=== PATIENT | female | born 1935 | race Caucasian/White ===

== ENCOUNTER 2017-10-04 12:17 | Inpatient (IN) | payer MEDICARE, OTHER ==
--- NOTE | 2017-10-04 12:36 | ED Physician Chart ---
ED Chief Complaint/HPI - Patient Information Date Seen:: 10/04/17 Time Seen:: 12:30 Chief Complaint:: Weakness History of Present Illness:: 82 yo female was brought by BLS to ER due to weakness. About 2 hours ago, patient was able to walk to and sit on a commode. Afterwards, she could not stand from sitting for 4 hours. Family called 911 and the patient was brought to ER. She was recently hospitalized for pneumonia. ED Review of Systems - Review of Systems General/Constitutional: No fever Skin: Skin lesions Head: No headache Eyes: No pain ENT: No nasal drainage Neck: No neck pain Cardio Vascular: No chest pain, edema Pulmonary: SOB GI: No nausea, No vomiting G/U: Frequency Musculoskeletal: No bone or joint pain ED Past Medical History - Past Medical History Past Medical History: HTN, DM, CAD, CHF, Other (pneumonia, anemia of chronic kidney disease, sleep apnea, pulmonary hypertension, atrial fibrillation, obesity) Social History: Non Smoker, No Alcohol, No Drug Use Surgical History: CABG (3V), Hysterectomy Family Medical History - Family Member Mother History Unknown: Yes ED Physical Exam - Physical Examination General/Constitutional: Awake, Alert Head: Atraumatic Eyes: PERRL Other Skin comments:: ecchymosis on BUE ENMT: Nasal exam nl Neck: No nuchal rigidity Respiratory: No Wheeze/Rhonchi/Rales Cardio Vascular: RRR, No murmur, gallop, rubs, NL S1 S2 Other GI comments:: epigastric midline incisional hernia, umbilical hernia Other Extremities comments:: Bilateral lower extremities edema ED Labs/Radiology/EKG Results - Lab Results Results: Laboratory Last Values WBC 16.0 Th/cmm (4.8-10.8) H 10/04/17 12:52 RBC 3.03 Mil/cmm (3.80-5.20) L 10/04/17 12:52 Hgb 9.6 gm/dL (12-16) L 10/04/17 12:52 Hct 27.9 % (41.0-60) L 10/04/17 12:52 MCV 92.0 fl (81-100) 10/04/17 12:52 MCH 31.6 pg (27.0-31.0) H 10/04/17 12:52 MCHC Differential 34.4 pg (28.0-36.0) 10/04/17 12:52 RDW 17.8 % (11.5-20.0) 10/04/17 12:52 Plt Count 343 Th/cmm (150-400) 10/04/17 12:52 MPV 6.3 fl 10/04/17 12:52 Band Neutrophils % 7 % (0-10) 10/04/17 12:52 Neutrophils (Manual) 81 % (40-80) H 10/04/17 12:52 Lymphocytes 7 % (20-50) L 10/04/17 12:52 Monocytes 4 % (2-10) 10/04/17 12:52 Eosinophils 1 % (0-5) 10/04/17 12:52 PT 11.0 SECONDS (9.5-11.5) 10/04/17 12:52 INR 1.06 (0.5-1.4) 10/04/17 12:52 PTT (Actin FS) 21.9 SECONDS (26.0-38.0) L 10/04/17 12:52 Sodium 121 mEq/L (136-145) L 10/04/17 12:52 Potassium 6.8 mEq/L (3.5-5.1) H* 10/04/17 12:52 Chloride 82 mEq/L (98-107) L 10/04/17 12:52 Carbon Dioxide 32.5 mEq/L (21.0-31.0) H 10/04/17 12:52 Anion Gap 13.3 (7.0-16.0) 10/04/17 12:52 BUN 144 mg/dL (7-25) H* 10/04/17 12:52 Creatinine 4.3 mg/dL (0.6-1.2) H* 10/04/17 12:52 Est GFR ( Amer) TNP 10/04/17 12:52 Est GFR (Non-Af Amer) TNP 10/04/17 12:52 BUN/Creatinine Ratio 33.5 10/04/17 12:52 Glucose 306 mg/dL (70-105) H 10/04/17 12:52 POC Glucose 171 MG/DL (70 - 105) H 10/04/17 17:59 Whole Bld Lactic Acid 1.50 mmol/L (0.60-1.99) 10/04/17 12:52 Calcium 9.6 mg/dL (8.6-10.3) 10/04/17 12:52 Total Bilirubin 0.5 mg/dL (0.3-1.0) 10/04/17 12:52 AST 11 U/L (13-39) L 10/04/17 12:52 ALT 17 U/L (7-52) 10/04/17 12:52 Alkaline Phosphatase 97 U/L (34-104) 10/04/17 12:52 Troponin I 0.03 ng/mL (0.01-0.05) 10/04/17 12:52 B-Natriuretic Peptide 1720.0 pg/mL (5.0-100.0) H 10/04/17 12:44 Total Protein 6.7 gm/dL (6.0-8.3) 10/04/17 12:52 Albumin 3.7 gm/dL (3.7-5.3) 10/04/17 12:52 Globulin 3.0 gm/dL 10/04/17 12:52 Albumin/Globulin Ratio 1.2 (1.0-1.8) 10/04/17 12:52 TSH 3.72 uIU/ml (0.34-5.60) 10/04/17 12:52 Urine Source RANDOM 10/04/17 15:00 Urine Color YELLOW 10/04/17 15:00 Urine Clarity CLOUDY (CLEAR) H 10/04/17 15:00 Urine pH 7.5 (4.6 - 8.0) 10/04/17 15:00 Ur Specific Wilder 1.015 (1.005-1.030) 10/04/17 15:00 Urine Protein 30 mg/dL (NEGATIVE) H 10/04/17 15:00 Urine Glucose (UA) NEGATIVE mg/dL (NEGATIVE) 10/04/17 15:00 Urine Ketones NEGATIVE mg/dL (NEGATIVE) 10/04/17 15:00 Urine Blood SMALL (NEGATIVE) H 10/04/17 15:00 Urine Nitrate NEGATIVE (NEGATIVE) 10/04/17 15:00 Urine Bilirubin NEGATIVE (NEGATIVE) 10/04/17 15:00 Urine Urobilinogen 0.2 E.U./dL (0.2 - 1.0) 10/04/17 15:00 Ur Leukocyte Esterase LARGE (NEGATIVE) H 10/04/17 15:00 Urine RBC 5-10 /hpf (0-5) H 10/04/17 15:00 Urine WBC >100 /hpf (0-5) H 10/04/17 15:00 Ur Epithelial Cells NONE SEEN /lpf (FEW) 10/04/17 15:00 Urine Bacteria FEW /hpf (NONE SEEN) 10/04/17 15:00 - Radiology Results Results: CXR: increased lung markings ED Assessment - Assessment General Assessment: UTI Leukocytosis Hyperkalemia Acute renal failure Chronic kidney disease Hyponatremia CHF Anemia of chronic kidney disease Assessment/Comments:: Calcium chloride 1000mg IV [id number] 50mEq IV Albuterol Neb 5mg Inulin 10unit SQ Levaquin 500mg IV Lasix 40mg IV Patient needs to be transferred to [facility].
[2017-10-04 12:59] LABS: BASOPHILE ABSOLUTE 0.1 Th/cumm (0-0.2); HEMATOCRIT 27.9 % (41.0-60); HEMOGLOBIN 9.6 gm/dL (12-16); LYMPHOCYTE ABSOLUTE 0.7 Th/cmm (1.5-3.0); MANUAL DIFF REQUIRED? YES; MEAN CORPUSCULAR HEMOGLOBIN 31.6 pg (27.0-31.0); MEAN CORPUSCULAR HGB CONC 34.4 pg (28.0-36.0); MEAN PLATELET VOLUME 6.3 fl; MONOCYTE ABSOLUTE 0.5 Th/cmm (0.3-1.0); NEUTROPHILE ABSOLUTE 14.7 Th/cmm (1.8-8.0); PLATELET COUNT 343 Th/cmm (150-400); RED BLOOD COUNT 3.03 Mil/cmm (3.80-5.20); RED CELL DISTRIBUTION WIDTH 17.8 % (11.5-20.0)
[2017-10-04 13:16] LABS: ALB/GLOB RATIO 1.2 (1.0-1.8); ALBUMIN 3.7 gm/dL (3.7-5.3); ALKALINE PHOSPHATASE 97 U/L (34-104); ANION GAP 13.3 (7.0-16.0); BILIRUBIN,TOTAL 0.5 mg/dL (0.3-1.0); CALCIUM SERUM 9.6 mg/dL (8.6-10.3); CARBON DIOXIDE 32.5 mEq/L (21.0-31.0); CHLORIDE 82 mEq/L (98-107); GLUCOSE 306 mg/dL (70-105); SGOT 11 U/L (13-39); SGPT/ALT 17 U/L (7-52); SODIUM SERUM 121 mEq/L (136-145); TOTAL PROTEIN,SERUM 6.7 gm/dL (6.0-8.3)
[2017-10-04 13:20] LABS: BAND NEUTROPHILE 7 % (0-10); EOSINOPHIL 1 % (0-5); LYMPHOCYTE 7 % (20-50); MONOCYTE 4 % (2-10); NEUTROPHILS 81 % (40-80); TOTAL CELLS COUNTED 100
[2017-10-04 13:28] LABS: BUN - UREA NITROGEN 144 mg/dL (7-25); POTASSIUM SERUM 6.8 mEq/L (3.5-5.1)
[2017-10-04 13:29] LABS: CREATININE - SERUM 4.3 mg/dL (0.6-1.2)
[2017-10-04] MEDS ORDERED: Albuterol Nebulizer 2.5mg/3mL HHN STA (13:44)
[2017-10-04] MEDS ORDERED: Sodium Bicarbonate 8.4% 50mEq PFS IVP STA (13:49)
[2017-10-04] MEDS ORDERED: Albuterol Nebulizer 2.5mg/3mL HHN ONE ×2 (13:51→13:54)
[2017-10-04] MEDS ORDERED: INSULIN HUMAN REGULAR 100 UNITS/ML UNIT SUBQ ONE (13:55)
[2017-10-04] MEDS ORDERED: Calcium Chloride 10% 100 mg/mL 10mL Abboject ONE (13:57)
[2017-10-04] MEDS ORDERED: Sodium Bicarbonate 8.4% 50mEq PFS IVP ONE (13:59)
[2017-10-04] MEDS ORDERED: INSULIN HUMAN REGULAR 100 UNITS/ML UNIT ONE ×2 (14:38→18:03)
[2017-10-04 14:52] LABS: INR 1.06 (0.5-1.4)
[2017-10-04] MEDS ORDERED: Levofloxacin 500mg/100mL 500 MG/100 ML BAG IV ONE ×2 (14:54→15:42)
[2017-10-04 15:09] LABS: URINE MICROSCOPIC INDICATED? YES; URINE SOURCE RANDOM
[2017-10-04 15:26] LABS: URINE BILIRUBIN NEGATIVE (NEGATIVE); URINE BLOOD SMALL (NEGATIVE); URINE GLUCOSE (UA) NEGATIVE (NEGATIVE); URINE KETONE NEGATIVE (NEGATIVE); URINE LEUKOCYTE ESTERASE LARGE (NEGATIVE); URINE NITRATE NEGATIVE (NEGATIVE); URINE PH 7.5 (4.6 - 8.0); URINE PROTEIN 30 mg/dL (NEGATIVE); URINE UROBILINOGEN 0.2 E.U./dL (0.2 - 1.0)
[2017-10-04 15:36] LABS: URINE CLARITY CLOUDY (CLEAR); URINE COLOR YELLOW
[2017-10-04 15:40] LABS: URINE WBC >100 /hpf (0-5)
[2017-10-04 15:41] LABS: URINE BACTERIA FEW /hpf (NONE SEEN); URINE EPITHELIAL CELLS NONE SEEN /lpf (FEW)
[2017-10-04] MEDS ORDERED: Sodium Chloride 0.9% 500 ML IV ONE ×2 (15:59→19:09)
[2017-10-04 18:36] LABS: % EOSINOPHILS 0.2 % (0.0-5.0); % LYMPHOCYTES 7.6 % (20.0-50.0); % MONOCYTES 7.6 % (2.0-10.0); % NEUTROPHILS 84.6 % (40.0-80.0); HEMATOCRIT 27.4 % (41.0-60); HEMOGLOBIN 8.9 gm/dL (12-16); LYMPHOCYTE ABSOLUTE 1.1 Th/cmm (1.5-3.0); MEAN CELL VOLUME 93.4 fl (81-100); MEAN CORPUSCULAR HEMOGLOBIN 30.5 pg (27.0-31.0); MEAN CORPUSCULAR HGB CONC 32.6 pg (28.0-36.0); MEAN PLATELET VOLUME 6.8 fl; MONOCYTE ABSOLUTE 1.1 Th/cmm (0.3-1.0); NEUTROPHILE ABSOLUTE 11.9 Th/cmm (1.8-8.0); RED BLOOD COUNT 2.93 Mil/cmm (3.80-5.20); RED CELL DISTRIBUTION WIDTH 18.8 % (11.5-20.0)
[2017-10-04 18:47] LABS: WHITE BLOOD COUNT 14.1 Th/cmm (4.8-10.8)
[2017-10-04 18:48] LABS: PLATELET COUNT 191 Th/cmm (150-400)
[2017-10-04 18:57] LABS: ALBUMIN 3.1 gm/dL (3.7-5.3); ALKALINE PHOSPHATASE 87 U/L (34-104); ANION GAP 18.1 (7.0-16.0); BILIRUBIN,TOTAL 0.5 mg/dL (0.3-1.0); CALCIUM SERUM 9.3 mg/dL (8.6-10.3); CARBON DIOXIDE 23.3 mEq/L (21.0-31.0); CHLORIDE 87 mEq/L (98-107); SGOT 15 U/L (13-39); SGPT/ALT 12 U/L (7-52); SODIUM SERUM 122 mEq/L (136-145); TOTAL PROTEIN,SERUM 6.2 gm/dL (6.0-8.3)
[2017-10-04 19:03] LABS: POTASSIUM SERUM 6.4 mEq/L (3.5-5.1)
[2017-10-04 19:04] LABS: BUN - UREA NITROGEN 141 mg/dL (7-25)
[2017-10-04 19:05] LABS: CREATININE - SERUM 4.2 mg/dL (0.6-1.2); GLUCOSE 167 mg/dL (70-105)
[2017-10-04 21:57] LABS: A1C % 7.5 % (4.0-6.0)
[2017-10-04] MEDS ORDERED: Meropenem 0.5 GM in Sodium Chloride 0.9% 100 ML IV ONE (23:00)
[2017-10-04] MEDS ORDERED: Hydrocodone/APAP 5mg/325mg Tab PO PRN (23:32)
[2017-10-04] MEDS ORDERED: Albuterol Nebulizer 2.5mg/3mL HHN PRN (23:32)
[2017-10-05] MEDS: Sodium Chloride 0.9% 1,000 ML IV SCH ×2 (00:30→11:56)
[2017-10-05] MEDS: INSULIN ASPART SLIDING SCALE 100 UNITS/ML UNIT SUBQ SCH ×4 (01:06→18:25)
[2017-10-05 04:26] LABS: % BASOPHILS 0.3 % (0.0-2.0); % EOSINOPHILS 2.3 % (0.0-5.0); % LYMPHOCYTES 10.2 % (20.0-50.0); % MONOCYTES 9.4 % (2.0-10.0); % NEUTROPHILS 77.8 % (40.0-80.0); EOSINOPHILE ABSOLUTE 0.3 Th/cmm (0.1-0.4); HEMATOCRIT 25.2 % (41.0-60); HEMOGLOBIN 8.3 gm/dL (12-16); LYMPHOCYTE ABSOLUTE 1.2 Th/cmm (1.5-3.0); MEAN CELL VOLUME 91.6 fl (81-100); MEAN CORPUSCULAR HEMOGLOBIN 30.1 pg (27.0-31.0); MEAN CORPUSCULAR HGB CONC 32.8 pg (28.0-36.0); MEAN PLATELET VOLUME 6.6 fl; MONOCYTE ABSOLUTE 1.1 Th/cmm (0.3-1.0); NEUTROPHILE ABSOLUTE 9.5 Th/cmm (1.8-8.0); RED BLOOD COUNT 2.75 Mil/cmm (3.80-5.20)
[2017-10-05 04:38] LABS: PLATELET COUNT 252 Th/cmm (150-400); WHITE BLOOD COUNT 12.1 Th/cmm (4.8-10.8)
[2017-10-05 04:43] LABS: ANION GAP 10.8 (7.0-16.0); CALCIUM SERUM 8.7 mg/dL (8.6-10.3); CARBON DIOXIDE 31.5 mEq/L (21.0-31.0); CHLORIDE 90 mEq/L (98-107); CHOLESTEROL 83 mg/dL (<200); CREATININE - SERUM 3.9 mg/dL (0.6-1.2); GLUCOSE 160 mg/dL (70-105); HDL -HIGH DENSITY LIPOPROTEIN 51 mg/dL (23-92); PHOSPHOROUS 2.7 mg/dL (2.5-5.0); POTASSIUM SERUM 4.3 mEq/L (3.5-5.1); SODIUM SERUM 128 mEq/L (136-145); TRIGLYCERIDES 73 mg/dL (<150)
[2017-10-05 05:01] LABS: BUN - UREA NITROGEN 134 mg/dL (7-25)
[2017-10-05 05:02] LABS: MAGNESIUM 4.1 mg/dL (1.9-2.7)
--- NOTE | 2017-10-05 05:46 | Consultation ---
DATE OF CONSULTATION: 10/05/2017 HISTORY OF PRESENT ILLNESS: She is an 82-year-old female who was seen and examined at the courtesy of Dr. Quach. The patient was admitted through Emergency Room. She was brought to the Emergency Room with a history that she was sitting on the commode and she did not get up. Before that, she was able to do these things, she was able to get up and walk around. She was evaluated in the Emergency Room and then admitted. The patient does have history of hypertension, diabetes mellitus, coronary artery disease status post CABG, congestive heart failure, history of pneumonia in the past, history of sleep apnea, history of pulmonary hypertension, atrial fibrillation and obesity. In the past, she also has had hysterectomy done. Denies any history of chest pain, no history of shortness of breath, no history of PND, no history of orthopnea, no history of cough, no history of fever, no history of hemoptysis, no history of seizures, no history of syncope, no history of abdominal pain. No history of nausea, vomiting, no hemetemesis, no history of melena, no history of bleeding per rectum. No history of hematuria. PHYSICAL EXAMINATION: VITAL SIGNS: Blood pressure is 112/40, heart rate was between 90-100. SKIN: Normal. HEAD: Normocephalic. EYES: Conjunctivae pink. There is no icterus in the eyes. Pupils reactive to light. NECK: There was no increased jugular venous distention, no thyromegaly, no lymphadenopathy. Carotids equal both sides. CHEST: Bilaterally symmetrical, moved well with respiration. Respiratory movements equal both sides. Trachea is central. There is note to percussion. Breath sound bilateral rales. CARDIOVASCULAR SYSTEM: PMI not well localized. There is no pulsation or thrill. No parasternal heave. S1 normal, S2 physiologic. There was no S3, no rub. ABDOMEN: Soft, no tenderness, no rigidity, no guarding and no organomegaly. Bowel sounds normal. EXTREMITIES: No edema. No calf tenderness. Pulses diminished. LABORATORY DATA: Her BNP was elevated to 1720. WBC count is 16, hemoglobin is 9.6, hematocrit 27.9, platelet count 343, bands of 7%, neutrophils 81%. Protime 11.0, INR 1.06, PTT 21.9, sodium 121, potassium 6.8, chloride 82, carbon dioxide 32.5, BUN 144, creatinine 4.3, glucose was 306. Lactic acid was 1.50. Calcium 9.6. TSH was 3.72. Urine showed wbc more than 100. I cannot find an EKG on the chart. IMPRESSION: Atrial fibrillation, coronary artery disease status post coronary artery bypass surgery, congestive heart failure, hypertension, diabetes type 2, chronic kidney disease stage 4, possible pneumonia, sleep apnea, hyponatremia, hyperkalemia, obesity. Suggest to continue present management and get a nephrological evaluation. Because of the AFib and with history of diabetes, congestive heart failure, coronary artery disease, and CHF, we will add anticoagulation with Eliquis and there are no contraindications. The patient should be on a beta ada, statins, nitrates, ARB if renal status is stable. Antibiotics as per PMD. Thank you. Dr. Bebeto Cruz will be following her now. JOB# [id number]
[2017-10-05] MEDS ORDERED: Levothyroxine 0.125 Mg Tab PO SCH (07:30)
--- NOTE | 2017-10-05 08:31 | Diagnostic Imaging Report ---
Exam: Portable chest x-ray. HISTORY: Shortness of breath. Findings: Orbital upright examination of the chest at 1250 hours reviewed, no prior studies available for comparison. The study demonstrates multiple metallic sutures status post restaurant thoracotomy. Mediastinal structures midline the heart is not enlarged. The aortic arch calcified. The costophrenic angles are clear. Bony thorax intact. There is a questionable ill-defined density interstitial thickening in the left lower lung. Early infiltrate cannot be excluded. Follow-up examination recommended. IMPRESSION: Mild haziness in the left base question early infiltrate cannot be excluded follow-up examination recommended.
[2017-10-05] MEDS: Aspirin 81mg Chewable Tab PO SCH (08:54)
[2017-10-05] MEDS ORDERED: Atorvastatin Calcium 10 MG TAB PO SCH (09:00)
--- NOTE | 2017-10-05 09:38 | Diagnostic Imaging Report ---
Portable chest x-ray HISTORY: Shortness of breath Compared to prior exam of August 03, 2018, the heart remains enlarged. Allowing for patient rotation and a poor inspiration, no definite acute focal pulmonary processes are seen. IMPRESSION: 1. Cardiomegaly 2. Allowing for a poor inspiration and patient rotation, no definite acute focal pulmonary processes
--- NOTE | 2017-10-05 11:29 | Diagnostic Imaging Report ---
CT scan of the brain without intravenous contrast HISTORY: Vertigo, dizziness Total DLP equals 528 CTDI equals 31.4 Axial sections were obtained from the base of the skull to the vertex. There is a normal ventricular system size for age. There is prominence of cerebral sulci and subarachnoid cisterns reflecting atrophy. No acute parenchymal abnormalities. No intracerebral hemorrhage. No mass effect or shift of midline structures. No extra-axial masses or abnormal fluid collections. Atherosclerotic calcification seen in the region of the vertebral arteries at the base of the skull. IMPRESSION: 1. No acute abnormalities 2. Cerebral atrophy 3. Atherosclerotic vascular changes
[2017-10-05] MEDS: Meropenem 500 MG in Sodium Chloride 0.9% 100 ML IV SCH (12:37)
--- NOTE | 2017-10-05 15:24 | Cardiology ---
The patient of Dr. Mani Portillo. PROCEDURE: Echocardiogram. M-MODE ECHOCARDIOGRAM: Mitral valve, anterior leaflet of mitral valve shows normal excursion, EF velocity. Posterior leaflet of the mitral valve shows normal excursion. Left ventricular posterior wall shows increased thickness, normal excursion. Interventricular septum shows increased thickness, normal excursion. Minimal hypertrophy of the left ventricle, ejection fraction 52%. Left atrium enlarged 4.6 cm. Aortic root shows normal dimension, normal excursion of aortic leaflets. CONCLUSION: Minimal hypertrophy of the left ventricle. Left atrial enlargement, ejection fraction 52%. 2D ECHO: Long axis view showed normal sized left ventricle with hypertrophy of the left ventricle. Left atrium enlarged. Aortic root shows normal dimension, normal excursion of aortic leaflets. Short axis of mitral valve normal. Short axis view of aortic valve normal. Apical four chamber showed normal sized left ventricle with hypertrophy of the left ventricle. Left atrium enlarged. Right ventricular cavity, right atrium normal, no pericardial effusion. CONCLUSION: Hypertrophy of the left ventricle, left atrial enlargement, ejection fraction 52%. Doppler study shows mild mitral regurgitation, trace aortic regurgitation, moderate tricuspid regurgitation, moderate pulmonary regurgitation. JOB# [id number]
[2017-10-05] MEDS: Albuterol/Ipratropium Neb 3 ML AERS HHN SCH ×3 (15:59→22:17)
--- NOTE | 2017-10-05 17:02 | Consultation ---
DATE OF CONSULTATION: 10/05/2017 RENAL CONSULT LOCATION: ICU, bed number 8, [facility]. ATTENDING PHYSICIAN: Dr. Quach. I thank you very much, Dr. Quach for allowing me to participate in the management of this patient of yours. INDICATIONS: This is an 82-year-old female patient. The patient is conscious, alert, good historian. HISTORY OF PRESENT ILLNESS: An 82-year-old female patient. She is a known case of hypertension, coronary artery disease, history of coronary artery bypass graft before, history of obesity, obstructive sleep apnea. The patient is also aware of CKD either status stage 2 or 3. The patient is seeing her thermostat machine tender in [facility] regularly and she has been told that she does not need dialysis at this time. The patient also has a history of hypertension, CHF, atrial fibrillation, pulmonary hypertension, history of hysterectomy. While patient was at home she could not get up from the commode, felt extremely weak and tired. The patient also has dizziness. The patient was brought to the Emergency Room, was found to have CHF, acute renal failure and hyperkalemia. The patient's hyperkalemia was treated with medical treatment without any dialysis. The patient has been transferred to the Emergency Room. Renal consultation has been requested. The patient has improved today compared to yesterday. She denies chest pain, does not have shortness of breath, vomiting or diarrhea. The patient states that she is feeling better with the breathing treatment and IV hydration. The patient has been continued on atorvastatin, Benadryl, Synthroid. The patient has been started on meropenem and IV hydration at 100 mL per hour. The patient did receive about 2.5 liters in the Emergency Room and received Kayexalate 30 grams by mouth one time yesterday. PAST MEDICAL AND SURGICAL HISTORY: As stated above, history of hypothyroidism, hypertension, coronary artery disease, CABG, hysterectomy, chronic renal failure, anemia, obesity, hyperlipidemia. SOCIAL HISTORY: No history of alcoholism or smoking. PHYSICAL EXAMINATION: GENERAL: An 83-year-old female patient, conscious, alert, not in distress. VITAL SIGNS: Heart rate 103, respirations 16, pulse 94, blood pressure 120/58. Yesterday's intake 850, output 1000 mL [place]. HEENT: Head, normocephalic, atraumatic. Eyes, sclerae is nonicteric. Conjunctivae are pale. Pupils reactive. EAR, NOSE, THROAT: No bleeding or discharge. NECK: No stiffness. Jugular venous pressure not distended. LUNGS: Good air entry. No rales or rhonchi. HEART: Irregular. No rub or gallop. ABDOMEN: Soft, nontender, not distended. Bowel sounds present. No flank tenderness. EXTREMITIES: Edema, both lower extremities which patient states these are chronic. SIGNIFICANT LABORATORY DATA: WBC improved to 12.1 from 16,000, hemoglobin has been decreased from 9.6 to 8.3, platelet count stable at 252,000. Sodium was 121, now it is 128, potassium improved from 6.8 to 4.3, carbon dioxide is 31.5, BUN 134, which improved from 144, creatinine improved from 4.2 to 3.9. Calcium, phosphorus normal. Magnesium slightly elevated. Urinalysis, large bacteria. ASSESSMENT: 1. Hyperkalemia. 2. Acute kidney injury. 3. Anemia. 4. Urinary tract infection. 5. Rule out sepsis. 6. Hyponatremia. 7. Hyperglycemia. 8. Hypothyroidism. 9. History of coronary artery disease. 10. Atrial fibrillation. PLAN: Continue current IV treatment. Obtain kidney ultrasound, CMP, phosphorus, magnesium, CBC with differential, TSH in the morning. Obtain waiting for the urine culture. Meanwhile, the patient has been covered with broad spectrum antibiotic. I will follow this patient with you. JOB# [id number]
[2017-10-05] MEDS: Budesonide 0.5 Mg/2 mL Ud HHN SCH (19:11)
[2017-10-06] MEDS: INSULIN ASPART SLIDING SCALE 100 UNITS/ML UNIT SUBQ SCH ×5 (00:04→23:54)
[2017-10-06] MEDS: Meropenem 500 MG in Sodium Chloride 0.9% 100 ML IV SCH ×3 (00:05→23:50)
--- NOTE | 2017-10-06 00:22 | History & Physical ---
ADMIT DATE: 10/05/2017 CHIEF COMPLAINT: Weakness. HISTORY OF PRESENT ILLNESS: The patient is an 82-year-old female with underlying history of multiple complex medical issues including diabetes, hypertension, coronary artery disease, congestive heart failure, pulmonary hypertension, obesity who was brought to Emergency Room for evaluation of severe generalized weakness, started about 2 hours prior to the Emergency Room. The patient was evaluated in Emergency Room, was noted to have a worsening renal failure, dehydration, sepsis, UTI. So, subsequently admitted to the ICU for treatment. This morning, the patient was alert, awake, was able to provide meaningful history. The patient said yesterday while she was using the restroom, unable to get off the commode, felt very weak, so family called 911 and the patient arrived Emergency Room. The patient denies any associated dizziness. No palpitations, no chest pain, no shortness of breath, no headache, no double vision, no trouble speech or other complaints. The patient said she has been followed by primary care doctor at [facility]. She is also seeing a specialist, on air announcer and trolley wire installer at [facility]. She has been having longstanding history of chronic kidney disease and has an AV shunt placed in the left upper arm, but the patient was told that no need for dialysis to be started at this point. PAST MEDICAL HISTORY: Hypertension, diabetes, coronary artery disease, CHF, anemia of chronic disease, sleep apnea, hypertension, obesity, congestive heart failure. PAST SURGICAL HISTORY: Coronary bypass graft surgery, hysterectomy in the past. FAMILY HISTORY: Noncontributory. SOCIAL HISTORY: Lives at home. Denies any alcohol, tobacco or street drug use. CURRENT MEDICATIONS: Acetaminophen, albuterol, DuoNeb, aspirin, Lipitor, Pulmicort, insulin, levothyroxine, meropenem, Lopressor, Zofran, and sodium chloride, IV fluids. ALLERGIES: Allergic to IODINE, LISINOPRIL, OXYBUTYNIN, PENICILLIN. REVIEW OF SYSTEMS: The patient denies any fever, no chills, no nausea, no vomiting, no abdominal pain, no headache, no trouble vision or trouble speech, no chest pain, no shortness of breath, no palpitations. No rectal bleed, no dysuria, no hematuria. She is complaining of generalized itching. PHYSICAL EXAMINATION: VITAL SIGNS: Temperature 96.2, pulse 77, respirations 11, blood pressure 110/60, oxygen saturation was 100% on room air. GENERAL APPEARANCE: The patient does not seem in acute distress, was lying comfortably in bed. HEENT: Unremarkable. HEART: S1, S2 normal. LUNGS: A few rales noted. ABDOMEN: Soft, nontender, no guarding or rigidity noted. No distention. NEUROLOGIC: Alert, awake, moves all extremities, bilateral lower extremities, +2 pitting edema noted. Grossly nonfocal exam. AVAILABLE LABORATORY DATA: WBC is 12.1, hemoglobin 8.3, hematocrit 25.2, platelet count was 252. Sodium 120, potassium 4.3 (6.8 upon admission), BUN 134 , creatinine 3.9, sugar is 164, magnesium 4.0, AST 15, ALT 12, TSH 1.17. Stool occult blood negative. Head CT is no acute intracranial abnormality noted. Chest x-ray: Cardiomegaly, no definitive focal infiltrate noted. ASSESSMENT: 1. Sepsis. 2. Urinary tract infection. 3. Worsening renal failure. 4. Anemia of chronic disease. 5. Hyperkalemia. 6. Diabetes hyperglycemia. 7. Chronic systolic heart failure. 8. Hypothyroidism. 9. Hypertension. 10. Hyperlipidemia. 11. Morbid obesity. 12. Hyperkalemia better PLAN: The patient was admitted to ICU, multispecialty was consulted including ID, Nephrology, Cardiology. The patient was started on IV meropenem for broad-spectrum coverage. The patient was started on IV fluids per Nephrology recommendations. Monitor for volume overload. Nebulized treatment will be given as needed. Continue beta-ada, aspirin, Lipitor. The patient will continue on sliding scale coverage. Symptomatic treatment will be given. Benadryl be given for itching. The patient's stool occult blood was ordered, which was negative for any rectal bleed. Hyperkalemia was treated with the IV insulin and Kayexalate. The patient's potassium improved to 4.3. White count also seems to be improving. DVT prophylaxis will be given. Plan of care discussed with Nephrology last night. Will follow. We will follow up on the special recommendations. The patient's conditions, plan of care discussed with nursing staff, discussed with the patient regarding her condition and plan of care. JOB# [id number] [facility]
--- NOTE | 2017-10-06 00:48 | Consultation ---
DATE OF CONSULTATION: 10/05/2017 REASON FOR CONSULTATION: Help the patient with shortness of breath, abnormal chest x-ray. CONSULT NOTE: This is a 82-year-old female who basically came to here initially with possibly itching all over the body. Subsequently, was found to have a little bit tachypneic, weak and tired and the x-ray was abnormal. Hence, I was asked to see this patient for further care and necessary treatment. The patient was just recently hospitalized with pneumonia, though could not quantify exactly for what reason she was admitted. Currently, feeling okay. No chest pain, not much wheezing or denied of any other related symptomatology and at this particular time seems to be fairly sleepy and no detailed history could not be obtained. PAST MEDICAL HISTORY: History of hypertension, diabetic mellitus, congestive heart failure, CKD, history of sleep apnea, pulmonary hypertension, chronic atrial fibrillation and history of previous CABG and smoking history, currently nil. PHYSICAL EXAMINATION: GENERAL: This is an elderly looking female, awake, but goes to sleep very easily, not in acute distress. VITAL SIGNS: The patient's recorded vitals: Temperature is 97.9, blood pressure 120/68, saturation 100% of oxygen. HEENT: Head is essentially unremarkable. Pupils appear to be equal and reacting to light. Conjunctivae are slightly pallor. Oral cavity, small oropharyngeal opening appears to be dry tongue. NECK: No nodes in the neck could be palpated. CHEST: Shows occasional rhonchi with generalized diminished air entry. HEART: Irregular. ABDOMEN: Soft, nontender. EXTREMITIES: Shows no peripheral edema. LABORATORY DATA: Initial white count of 16,000, which has dropped to 12.1, hemoglobin is 8.3 and patient's electrolytes was hyponatremic, which has significantly improved at this particular time with BUN of 134, creatinine is 3.7. Chest x-ray shows some increased vascularity, otherwise unremarkable. IMPRESSION: 1. The patient has resolving "pneumonitis." 2. Questionable congestive heart failure. 3. Severe obstructive sleep apnea syndrome with pulmonary hypertension with chronic AFib. PLANS AND SUGGESTIONS: We will go ahead and continue aggressive inhalation treatment, empiric antibiotic. We will go ahead and put empirically on a BiPAP and go from there. Thank you very much for letting this patient. I will be glad to follow along with you. JOB# [id number]
[2017-10-06] MEDS: Albuterol/Ipratropium Neb 3 ML AERS HHN SCH ×6 (02:20→22:01)
[2017-10-06] MEDS: Sodium Chloride 0.9% 1,000 ML IV SCH (04:05)
[2017-10-06 05:20] LABS: ALB/GLOB RATIO 1.2 (1.0-1.8); ALBUMIN 2.8 gm/dL (3.7-5.3); ALKALINE PHOSPHATASE 64 U/L (34-104); ANION GAP 9.4 (7.0-16.0); BILIRUBIN,DIRECT 0.11 mg/dL (0.0-0.2); BILIRUBIN,TOTAL 0.5 mg/dL (0.3-1.0); CALCIUM SERUM 8.6 mg/dL (8.6-10.3); CARBON DIOXIDE 31.8 mEq/L (21.0-31.0); CHLORIDE 91 mEq/L (98-107); CREATININE - SERUM 3.9 mg/dL (0.6-1.2); GLUCOSE 164 mg/dL (70-105); POTASSIUM SERUM 3.2 mEq/L (3.5-5.1); SGOT 9 U/L (13-39); SGPT/ALT 11 U/L (7-52); SODIUM SERUM 129 mEq/L (136-145); TOTAL PROTEIN,SERUM 5.1 gm/dL (6.0-8.3)
[2017-10-06 05:29] LABS: BUN - UREA NITROGEN 132 mg/dL (7-25)
[2017-10-06] MEDS: Budesonide 0.5 Mg/2 mL Ud HHN SCH ×2 (06:59→21:02)
[2017-10-06 09:17] LABS: pH 7.47 (7.35-7.45)
[2017-10-06 09:18] LABS: ALLEN TEST POSITIVE
[2017-10-06] MEDS: Aspirin 81mg Chewable Tab PO SCH (09:46)
--- NOTE | 2017-10-06 09:49 | Diagnostic Imaging Report ---
CT Chest without IV contrast HISTORY: Pneumonia COMPARISON: Chest x-ray 10/05/2017. Technique: Axial images were obtained from the base of the neck to the upper abdomen without IV contrast. Reconstructions were made. Total DLP 333, CTD I 7.9 Findings: Evaluation of the mediastinum is limited due to lack of IV contrast. No evidence of mediastinal lymphadenopathy. Mild cardiomegaly is noted with heavy atherosclerotic vascular disease. No evidence of a pericardial effusion. No evidence of any aortic aneurysm. Hypoventilatory atelectatic changes of the lungs are seen with diffuse scattered subcentimeter nodular infiltrates throughout the lungs and mild bibasal consolidative changes. Trace right pleural effusion is noted. There is a ventral hernia along the midline upper abdomen region inferior to the sternum with protrusion of the stomach. Partially visualized 5.2 cm right renal cyst is noted. Right hydronephrosis is also noted. Bilateral renal calcifications are noted. Anasarca is noted. Gallstones are noted. Degenerative changes of the spine are noted. IMPRESSION: Few nonspecific multifocal nodular infiltrates which may be due to infectious/ inflammatory or less likely neoplastic process. Correlation with old exams would be helpful for comparison. Alternatively follow-up CT in 4-6 months may be obtained. Small right pleural effusion and bibasilar passive atelectasis /mild consolidative changes. Pneumonia in these regions cannot be excluded. Heavy atherosclerotic vascular disease and cardiomegaly. Note that a mild degree of congestion can also not be excluded. Ventral hernia below the sternum, with protrusion of part of the stomach. Gallstones. Bilateral renal calcifications , likely renal stones. Partially visualized right renal cyst is noted with partially visualized right hydronephrosis. If necessary follow-up ultrasound or CT abdomen and pelvis may also be obtained. Anasarca Degenerative changes.
--- NOTE | 2017-10-06 10:26 | Diagnostic Imaging Report ---
Renal ultrasound HISTORY: Acute renal failure. COMPARISON: CT chest on 08/04/2018 Technique: Sonography of the kidneys and urinary bladder was performed in multiple planes. FINDINGS: Exam is limited due to bowel gas and body habitus. The right kidney measures 11.5 x 5.8 cm. Right renal cysts are noted the largest measuring 4.5 x 4.3 cm. Assessment for hydronephrosis is limited on this exam. Mild hydronephrosis is suspected The left kidney measures 9.4 x 5.3 cm. No obvious hydronephrosis. Assessment for focal lesions is limited. Biggs catheter is seen within the urinary bladder. No definite evidence of urinary bladder wall thickening. IMPRESSION: Markedly limited exam due to body habitus. Multiple right renal cysts are noted. There is suggestion of at least mild right hydronephrosis. If indicated CT with IV contrast with further clarify. Suboptimal assessment of the left kidney. No definite hydronephrosis of left kidney Biggs catheter in the urinary bladder.
[2017-10-06] MEDS: Diltiazem 30 mg Tab PO SCH ×3 (12:28→23:49)
[2017-10-06] MEDS ORDERED: Potassium Chloride 20 mEq ER Tab PO ONE (12:30)
--- NOTE | 2017-10-06 14:20 | Consultation ---
DATE OF CONSULTATION: 10/06/2017 REFERRING PHYSICIAN: Bandar Quach MD REASON FOR CONSULTATION: Sepsis. HISTORY OF PRESENT ILLNESS: The patient is an 82-year-old female with past medical history of hypertension, diabetes mellitus type 2, coronary artery disease, CHF, anemia of chronic disease, sleep apnea, hypertension, obesity, and congestive heart failure, brought to the ER for generalized weakness. In usual health, she was able to walk to sit on commode. Unfortunately, she was unable to get up from the commode. She could not stand for 4 hours. They called 911 and the patient was brought to the ER for further evaluation and management. On initial evaluation, the patient's temperature was 97.7 degrees Fahrenheit and WBC count was 16,000 with neutrophil 81%. The patient's potassium was 6.8 and creatinine 4.3. Initially sepsis workup was performed and urine culture grew Proteus mirabilis. The patient was started on meropenem and ID consult was called for antibiotic management. PAST MEDICAL HISTORY: Includes CAD, hypertension, diabetes mellitus, coronary artery disease, CHF, pneumonia, anemia of chronic disease, CKD, COPD, pulmonary hypertension, and obesity. SOCIAL HISTORY: The patient has no history of smoking, alcohol, or drug use. PAST SURGICAL HISTORY: Includes CABG and hysterectomy. FAMILY HISTORY: Noncontributory. REVIEW OF SYSTEMS: CONSTITUTIONAL: The patient denies any fever or chills. The patient has generalized weakness. HEENT: The patient denies diplopia, photophobia, sore throat or congestion. RESPIRATORY: The patient denies any cough or shortness of breath. CARDIOVASCULAR: The patient denies any chest pain, no palpitation. GASTROINTESTINAL: The patient denies any nausea, vomiting, diarrhea, or constipation. GENITOURINARY: The patient denies any dysuria or hematuria. MUSCULOSKELETAL: ____ CENTRAL NERVOUS SYSTEM: The patient denies any headache, dizziness, or focal weakness. PHYSICAL EXAMINATION: SKIN: The patient has radicular pinkish rash all over the body for 2 weeks. VITAL SIGNS: Shows the temperature of 97.3 degrees Fahrenheit, pulse 123, respiration is 18, and blood pressure 123/50. GENERAL: Pleasant and comfortable in the bed, not in acute distress. HEENT: Head is normocephalic and atraumatic. Oral cavity moist. [place] tongue. Eyes, pallor is present. No icterus. PERRLA. EOMI. NECK: Supple. No JVD, no carotid bruit. Trachea midline. CHEST: Bilateral breath sounds. No crackles or wheezing. HEART: S1, S2 within normal limits. Regular rhythm. No murmur, no gallop. ABDOMEN: Soft, nontender, and nondistended. Bowel sounds present. EXTREMITIES: No cyanosis, no clubbing, no edema. The patient has compression stockings in both legs. SKIN: The patient has reticulated confluent rash all over the body. It is itchy. LABORATORY DATA: Current lab shows WBC count is 12,100, hemoglobin 8.3, hematocrit 25.2, platelets are 252,000, neutrophils 77.8%. Sodium 128, potassium 4.3, chloride 90, bicarbonate is 31.5, BUN is 134, potassium 3.9, glucose is 160. BNP 1440. Urinalysis: Cloudy urine with large leukoesterase, WBC more than 100 and few bacteria. Stool for occult blood is negative. Urine culture grew Proteus mirabilis. Blood culture, no growth. MRSA screen is positive. RADIOLOGIC DATA: Chest x-ray showed cardiomegaly. No acute process. CT scan of the chest ____ focal nodular infiltrate, bilateral renal calcification, anasarca, DJD, gallstone, ventral hernia, bibasilar pressure atelectasis, mild consolidative changes. IMPRESSION: 1. Leukocytosis, likely sepsis. 2. Urinary tract infection. 3. Resolving pneumonia. 4. Acute kidney injury. 5. ____. 6. Generalized rash likely allergic versus autoimmune. 7. Diabetes mellitus type 2. 8. Sleep apnea. 9. Obesity. 10. Coronary artery disease. 11. Anemia of chronic disease. 12. History of hypertension. 13. Congestive heart failure. 14. Anasarca. 15. Pulmonary hypertension. RECOMMENDATION AND PLAN: Continue meropenem. Thank you, Dr. Bandar Quach for involving me in taking care of this patient. JOB# [id number]
[2017-10-06 16:13] LABS: FOLIC ACID 13.4 ng/mL (>3.0)
--- NOTE | 2017-10-06 19:55 | General Progress Note ---
Subjective - Review of Systems Service Date: 10/06/17 Subjective: Patient seen and examined doing ok requested her allergy medications denied chest pain or shortness of breath or any other complaints Objective - Results Result Diagrams: 10/05/17 04:09 10/06/17 04:22 Recent Labs: Laboratory Last Values WBC 12.1 Th/cmm (4.8-10.8) H 10/05/17 04:09 RBC 2.75 Mil/cmm (3.80-5.20) L 10/05/17 04:09 Hgb 8.3 gm/dL (12-16) L 10/05/17 04:09 Hct 25.2 % (41.0-60) L 10/05/17 04:09 MCV 91.6 fl (81-100) 10/05/17 04:09 MCH 30.1 pg (27.0-31.0) 10/05/17 04:09 MCHC Differential 32.8 pg (28.0-36.0) 10/05/17 04:09 RDW 18.0 % (11.5-20.0) 10/05/17 04:09 Plt Count 252 Th/cmm (150-400) D 10/05/17 04:09 MPV 6.6 fl 10/05/17 04:09 Neutrophils % 77.8 % (40.0-80.0) 10/05/17 04:09 Band Neutrophils % 7 % (0-10) 10/04/17 12:52 Lymphocytes % 10.2 % (20.0-50.0) L 10/05/17 04:09 Monocytes % 9.4 % (2.0-10.0) 10/05/17 04:09 Eosinophils % 2.3 % (0.0-5.0) 10/05/17 04:09 Basophils % 0.3 % (0.0-2.0) 10/05/17 04:09 Neutrophils (Manual) 81 % (40-80) H 10/04/17 12:52 Lymphocytes 7 % (20-50) L 10/04/17 12:52 Monocytes 4 % (2-10) 10/04/17 12:52 Eosinophils 1 % (0-5) 10/04/17 12:52 PT 11.0 SECONDS (9.5-11.5) 10/04/17 12:52 INR 1.06 (0.5-1.4) 10/04/17 12:52 PTT (Actin FS) 21.9 SECONDS (26.0-38.0) L 10/04/17 12:52 Specimen Source Arterial 10/06/17 09:05 Sample Site Right Radial 10/06/17 09:05 pH 7.47 (7.35-7.45) H 10/06/17 09:05 pCO2 49.0 mmHg (35.0-45.0) H 10/06/17 09:05 pO2 83.0 mmHg (80.0-100.0) 10/06/17 09:05 HCO3 33.1 mEq/L (20.0-26.0) H 10/06/17 09:05 Base Excess 10.5 mEq/L (-3.0-3.0) H 10/06/17 09:05 O2 Saturation 97.0 % (92.0-100.0) 10/06/17 09:05 Rai Test POSITIVE 10/06/17 09:05 Vent Rate NA 10/06/17 09:05 Inspired O2 28 10/06/17 09:05 Tidal Volume NA 10/06/17 09:05 PEEP NA 10/06/17 09:05 Pressure (ins/psv/peep) NA 10/06/17 09:05 Critical Value SATYA SUE 10/06/17 09:05 Sodium 129 mEq/L (136-145) L 10/06/17 04:22 Potassium 3.2 mEq/L (3.5-5.1) L 10/06/17 04:22 Chloride 91 mEq/L (98-107) L 10/06/17 04:22 Carbon Dioxide 31.8 mEq/L (21.0-31.0) H 10/06/17 04:22 Anion Gap 9.4 (7.0-16.0) 10/06/17 04:22 BUN 132 mg/dL (7-25) H* 10/06/17 04:22 Creatinine 3.9 mg/dL (0.6-1.2) H 10/06/17 04:22 Est GFR ( Amer) TNP 10/06/17 04:22 Est GFR (Non-Af Amer) TNP 10/06/17 04:22 BUN/Creatinine Ratio 33.8 10/06/17 04:22 Glucose 164 mg/dL (70-105) H 10/06/17 04:22 POC Glucose 281 MG/DL (70 - 105) H 10/06/17 17:34 Hemoglobin A1c % 7.5 % (4.0-6.0) H 10/04/17 12:52 Whole Bld Lactic Acid 1.50 mmol/L (0.60-1.99) 10/04/17 12:52 Calcium 8.6 mg/dL (8.6-10.3) 10/06/17 04:22 Phosphorus 2.7 mg/dL (2.5-5.0) 10/05/17 04:09 Magnesium 4.1 mg/dL (1.9-2.7) H* 10/05/17 04:09 Total Bilirubin 0.5 mg/dL (0.3-1.0) 10/06/17 04:22 Direct Bilirubin 0.11 mg/dL (0.0-0.2) 10/06/17 04:22 AST 9 U/L (13-39) L 10/06/17 04:22 ALT 11 U/L (7-52) 10/06/17 04:22 Alkaline Phosphatase 64 U/L (34-104) 10/06/17 04:22 Troponin I 0.03 ng/mL (0.01-0.05) 10/04/17 12:52 B-Natriuretic Peptide 1680.0 pg/mL (5.0-100.0) H 10/06/17 04:22 Total Protein 5.1 gm/dL (6.0-8.3) L 10/06/17 04:22 Albumin 2.8 gm/dL (3.7-5.3) L 10/06/17 04:22 Globulin 2.3 gm/dL 10/06/17 04:22 Albumin/Globulin Ratio 1.2 (1.0-1.8) 10/06/17 04:22 Triglycerides 73 mg/dL (<150) 10/05/17 04:09 Cholesterol 83 mg/dL (<200) 10/05/17 04:09 LDL Cholesterol Direct 32 mg/dL (75-193) L 10/05/17 04:09 HDL Cholesterol 51 mg/dL (23-92) 10/05/17 04:09 Vitamin B12 1138 pg/mL (232-1245) 10/05/17 04:09 Folic Acid 13.4 ng/mL (>3.0) 10/05/17 04:09 TSH 1.17 uIU/ml (0.34-5.60) 10/05/17 04:09 Urine Source RANDOM 10/04/17 15:00 Urine Color YELLOW 10/04/17 15:00 Urine Clarity CLOUDY (CLEAR) H 10/04/17 15:00 Urine pH 7.5 (4.6 - 8.0) 10/04/17 15:00 Ur Specific [place] 1.015 (1.005-1.030) 10/04/17 15:00 Urine Protein 30 mg/dL (NEGATIVE) H 10/04/17 15:00 Urine Glucose (UA) NEGATIVE mg/dL (NEGATIVE) 10/04/17 15:00 Urine Ketones NEGATIVE mg/dL (NEGATIVE) 10/04/17 15:00 Urine Blood SMALL (NEGATIVE) H 10/04/17 15:00 Urine Nitrate NEGATIVE (NEGATIVE) 10/04/17 15:00 Urine Bilirubin NEGATIVE (NEGATIVE) 10/04/17 15:00 Urine Urobilinogen 0.2 E.U./dL (0.2 - 1.0) 10/04/17 15:00 Ur Leukocyte Esterase LARGE (NEGATIVE) H 10/04/17 15:00 Urine RBC 5-10 /hpf (0-5) H 10/04/17 15:00 Urine WBC >100 /hpf (0-5) H 10/04/17 15:00 Ur Epithelial Cells NONE SEEN /lpf (FEW) 10/04/17 15:00 Urine Bacteria FEW /hpf (NONE SEEN) 10/04/17 15:00 Stool Occult Blood NEGATIVE (NEGATIVE) 10/05/17 17:45 - Physical Exam Vitals and I&O: Vital Signs Temp 98.8 F 10/06/17 12:00 Pulse 116 10/06/17 18:00 Resp 18 10/06/17 18:00 BP 118/48 10/06/17 18:00 Pulse Ox 99 10/06/17 18:00 Intake & Output 10/06/17 10/06/17 10/07/17 06:59 18:59 06:59 Intake Total 1300 100 420 Output Total 650 500 Balance 650 100 -80 Weight (lbs) 87.543 kg 87.679 kg Intake: Intake, IV Amount 1100 100 Meropenem 500 mg In 100 100 Sodium Chloride 0.9% 100 ml @ 100 mls/hr IV Q12H [facility] Rx#:[id number] Sodium Chloride 0.9% 1, 1000 000 ml @ 100 mls/hr IV . Q10H [facility] Rx#:[id number] Oral 200 420 Output: Urine 650 500 Active Medications: Current Medications Acetaminophen/Hydrocodone Bitart ([place]gar 5mg/325mg) 1 tab PO Q6H PRN PRN Reason: Pain (Severe) Stop: 12/03/17 23:31 Albuterol Sulfate (Albuterol 2.5mg/3ml Neb Ud) 2.5 mg HHN Q2H PRN PRN Reason: Shortness of Breath or Wheeze Stop: 12/03/17 23:31 Albuterol/Ipratropium (Duoneb Neb) 3 ml HHN Q4HRT [facility] Stop: 12/04/17 14:59 Last Admin: 10/06/17 14:56 Dose: 3 ml Atorvastatin Calcium (Lipitor) 40 mg PO DAILY [facility] Stop: 12/05/17 08:59 Last Admin: 10/06/17 09:46 Dose: 40 mg Budesonide (Pulmicort) 0.5 mg HHN BIDRT [facility] Stop: 12/04/17 18:59 Last Admin: 10/06/17 06:59 Dose: 0.5 mg Diltiazem HCl (Cardizem) 60 mg PO Q6HR [facility] Stop: 12/05/17 11:59 Last Admin: 10/06/17 17:27 Dose: 60 mg Diphenhydramine HCl (Benadryl) 25 mg PO QID PRN PRN Reason: Itching Stop: 12/04/17 13:19 Fluticasone Propionate (Flonase) 1 spr NS DAILY [facility] Stop: 12/06/17 08:59 Guaifenesin (Mucinex) 600 mg PO Q12HR PRN PRN Reason: Cough or Congestion Stop: 12/05/17 17:19 Meropenem 500 mg/ Sodium (Chloride) 100 mls @ 100 mls/hr IV Q12H [facility] Stop: 12/04/17 11:59 Last Infusion: 10/06/17 13:20 Dose: Infused Insulin Aspart (Novolog Insulin Sliding Scale) 0 units SUBQ Q6HR VIVI PRN Reason: Protocol Stop: 12/04/17 00:00 Last Admin: 10/06/17 17:36 Dose: 6 units Levothyroxine Sodium 0.1 mg/ (Levothyroxine Sodium 0.025 mg) 0.125 mg PO QDAC [facility] Stop: 12/04/17 08:59 Last Admin: 10/06/17 07:02 Dose: 0.125 mg Loratadine (Claritin) 10 mg PO DAILY PRN PRN Reason: Allergy Symptoms Stop: 12/05/17 17:16 Methylprednisolone Sodium Succinate (Solu-Medrol) 40 mg IV Q8HR [facility] Stop: 10/10/17 13:01 Metoprolol Tartrate (Lopressor) 25 mg PO BID [facility] Stop: 12/04/17 08:59 Last Admin: 10/06/17 17:27 Dose: 25 mg Miscellaneous (Clinical Monitoring) 1 ea MC PRN PRN PRN Reason: RENAL Stop: 12/04/17 09:55 Ondansetron HCl (Zofran) 4 mg IV Q6H PRN PRN Reason: Nausea / Vomiting Stop: 12/03/17 23:31 Tetrahydrozoline HCl/Zinc Sulfate (Visine Ophth Soln) 0 drop EACH EYE BID PRN PRN Reason: Itchy Dry Eyes Stop: 12/05/17 17:17 General: Alert Cardiovascular: Other (tachycardia) Lungs: Other (scattered rales) Abdomen: Soft Extremities: Edema Assessment/Plan - Problem List Patient Problems: All Active Problems GENERALIZED WEAKNESS (Acute) - Assessment Assessment: SEPSIS UTI ACUTE ON CKD HYPONATREMIA CHRONIC HEART FAILURE CAD HTN ALLERGIES - Plan Plan: Nephrology recomended to start HD but patient wants it to be started at [place] Case management consulted to make transfer arrangement Continue current treatment. EMMA reviewed Follow up labs in am Monitor vitals PT OT Plan of care discussed with patient and nursing staff Nutritional Asmnt/Malnutr-PDOC - Dietary Evaluation Malnutrition Findings (Please click <Entered> for more info): Nutritional Asmnt/Malnutrition Start: 10/06/17 15: 15 Text: Status: Complete Freq: Document 10/06/17 15:16 LCCAROLG (Rec: 10/06/17 15:50 LCPLACIDO GILSON-FN) Nutritional Asmnt/Malnutrition Patient General Information Nutritional Screening High Risk Diagnosis sepsis Pertinent Medical Hx/Surgical Hx HTN, DM, CAD, CHF, anemia, sleep apnea, obesity, coronary bypass graft surgery, hysterectomy Subjective Information Consult received for coccygeal pressure ulcer. Per record, pt consumed 75% of breakfast this morning. Per nurse notes 10/06, pt refused dialysis order. Current Diet Order/ Nutrition Support renal, CCHO Pertinent Medications novolog, levothyroxine Pertinent Labs 10/06 Na 129, K 3.2, Cl 91, BUN 132, Cr 3.9, Glucose 164, POC 158-264 10/04 A1c 7.5 Nutritional Hx/Data Height 1.52 m Height (Calculated Centimeters) 152.4 Current Weight (lbs) 87.543 kg Weight (Calculated Kilograms) 87.5 Weight (Calculated Grams) 46720.3 [place] Body Weight 100 % [place] Body Weight 193 Body Mass Index (BMI) 37.7 Weight Status Obese GI Symptoms GI Symptoms None Last BM 10/05 Difficult in: None Skin Integrity/Comment: bruise to buttocks, right thigh and left leg Pressure ulcer to coccygeal area Current %PO Good (75-100%) Estimated Nutritional Goals BEE in Kcals: Adj wt of IBW Calories/Kcals/Kg 30-35 adj wt 56kg Kcals Calculated 1557-1312 Protein: Adj wt of IBW Protein g/k-1.2 Protein Calculated 56-67 monitor renal labs Fluid: ml 1512-1792ml (1ml/kcal) or per MD Nutritional Problem 2. Problem Problem increased nutrition needs ( calorie and protein) Etiology increased metabolic demand Signs/Symptoms: dx of sepsis and pressure ulcer 1. Problem Problem altered nutrition related lab values Etiology hx of DM, renal dysfunction Signs/Symptoms: Glucose 164, POC 158-264, A1c 7.5, BUN 132, Cr 3.9 Intervention/Recommendation Comments 1. Continue with current diet as ordered. MD to adjust insulin for optimal glycemic control 2. Recommend vit C and zinc for wound healing 3. Monitor PO intake, wt, labs and skin integrity 4. F/U as high risk in 2-3 days, 10/08-10/09 Expected Outcomes/Goals Expected Outcomes/Goals 1. PO intake to meet at least 75% of nutritional needs. 2. Wt stability, wound to heal , labs to approach WNL.
--- NOTE | 2017-10-06 20:04 | Progress Notes ---
DATE: 10/06/2017 RENAL FOLLOWUP LOCATION: [facility], ICU bed #8. INTERVAL HISTORY: The patient is conscious, alert. She denies any vomiting or diarrhea. The patient states that she does not have shortness of breath or cough. The patient is making good urine through Biggs catheter. PHYSICAL EXAMINATION: VITAL SIGNS: Heart rate 123, blood pressure 124/51, respiration 18. Intake 850, output 1000 yesterday. Today, intake 2450 and output 1450. HEART: Regular. LUNGS: Good air entry. No rales or rhonchi. ABDOMEN: Soft, not distended. EXTREMITIES: Trace edema. LABORATORY DATA: Sodium 129, potassium 3.2, chloride 91, CO2 of 31, BUN 132, creatinine 3.9, blood sugar 164, calcium 8.6. WBC 12.1, hemoglobin 8.3. ASSESSMENT: 1. Worsening of chronic kidney disease. 2. Anemia. 3. Obesity. 4. Acute kidney injury. 5. Mild right hydronephrosis. 6. Hyponatremia. 7. Hypothyroidism. 8. Atrial fibrillation. 9. History of coronary artery disease. PLAN: 1. Stop Lasix. 2. Continue IV hydration. 3. Need for dialysis has been discussed with the patient through left upper extremity AV graft. The patient is refusing dialysis. All consequences, alternate treatment, advantages, disadvantages were discussed with the patient and all questions have been answered. The patient is still refusing dialysis at this time. We will check CMP, phosphorus, CBC in the morning. If necessary, we will start patient on Epogen if it is not contraindicated. Discussed with nursing staff. JOB# [id number]
[2017-10-06] MEDS: methylPREDNISolone SS 40 mg Vial IV SCH (20:31)
--- NOTE | 2017-10-06 23:41 | Progress Notes ---
DATE: 10/06/2017 PROBLEM LIST: 1. Acute respiratory failure. 2. Cardiac arrhythmia. 3. Pulmonary hypertension. 4. Severe electrolyte imbalance. 5. Suspect obstructive sleep apnea syndrome. The patient claims to be feeling okay, offers no specific new symptoms, claims to be not using ____ claustrophobia. Denies of any much of her shortness of breath, but is much more awake than yesterday. PHYSICAL EXAMINATION: VITAL SIGNS: Temperature is 97.3, heart rate 110-140, blood pressure 140/51, saturation 100% on 2 liters. NECK: Veins not visualized. CHEST: Shows occasional rhonchi with generalized, diminished air entry. HEART: Regular and tachycardic. ABDOMEN: Soft, nontender. EXTREMITIES: Shows no peripheral edema, no cyanosis or clubbing. LABORATORY DATA: The patient's CT shows some basal cicatricial changes with questionable interstitial pattern, there is a lot of pleural based disease, especially posterior pleural space, right middle lobe atelectasis as well. ____ cardiac size. ASSESSMENT: The patient is clinically stable, not much changed. PLANS AND SUGGESTIONS: We will discuss with RT to use a total face mask and if he can do better with that and go from there. Otherwise, continue rest of the treatment. JOB# [id number]
[2017-10-07] MEDS: Albuterol/Ipratropium Neb 3 ML AERS HHN SCH ×5 (03:59→19:23)
[2017-10-07 05:04] LABS: MANUAL DIFF REQUIRED? YES
[2017-10-07 05:08] LABS: HEMATOCRIT 28.1 % (41.0-60); HEMOGLOBIN 9.4 gm/dL (12-16); MEAN CELL VOLUME 92.5 fl (81-100); MEAN CORPUSCULAR HEMOGLOBIN 30.9 pg (27.0-31.0); MEAN CORPUSCULAR HGB CONC 33.5 pg (28.0-36.0); PLATELET COUNT 191 Th/cmm (150-400); RED BLOOD COUNT 3.03 Mil/cmm (3.80-5.20); RED CELL DISTRIBUTION WIDTH 17.8 % (11.5-20.0)
[2017-10-07 05:16] LABS: ALB/GLOB RATIO 1.1 (1.0-1.8); ALKALINE PHOSPHATASE 87 U/L (34-104); ANION GAP 16.6 (7.0-16.0); BILIRUBIN,TOTAL 0.6 mg/dL (0.3-1.0); CALCIUM SERUM 8.5 mg/dL (8.6-10.3); CARBON DIOXIDE 27.6 mEq/L (21.0-31.0); CHLORIDE 91 mEq/L (98-107); CREATININE - SERUM 3.9 mg/dL (0.6-1.2); GLUCOSE 349 mg/dL (70-105); PHOSPHOROUS 4.1 mg/dL (2.5-5.0); POTASSIUM SERUM 4.2 mEq/L (3.5-5.1); SGOT 10 U/L (13-39); SGPT/ALT 13 U/L (7-52); SODIUM SERUM 131 mEq/L (136-145); TOTAL PROTEIN,SERUM 5.8 gm/dL (6.0-8.3)
[2017-10-07 05:21] LABS: WHITE BLOOD COUNT 13.1 Th/cmm (4.8-10.8)
[2017-10-07 05:32] LABS: BUN - UREA NITROGEN 129 mg/dL (7-25)
[2017-10-07 05:50] LABS: BAND NEUTROPHILE 5 % (0-10); LYMPHOCYTE 4 % (20-50); MONOCYTE 2 % (2-10); NEUTROPHILS 89 % (40-80); TOTAL CELLS COUNTED 100
[2017-10-07] MEDS: Diltiazem 30 mg Tab PO SCH ×3 (05:53→17:50)
[2017-10-07] MEDS: methylPREDNISolone SS 40 mg Vial IV SCH ×3 (05:54→20:57)
[2017-10-07] MEDS: INSULIN ASPART SLIDING SCALE 100 UNITS/ML UNIT SUBQ SCH ×3 (05:54→18:22)
[2017-10-07] MEDS: Budesonide 0.5 Mg/2 mL Ud HHN SCH ×2 (07:51→19:23)
[2017-10-07 08:11] LABS: IRON LC 39 ug/dL (27-139); TIBC (LC) 182 ug/dL (250-450); UIBC 143 ug/dL (118-369)
[2017-10-07] MEDS ORDERED: Fluticasone Propionate 0.05mg/Actuation 16gm Nasal Spray NS SCH (09:00)
[2017-10-07 09:32] LABS: ALLEN TEST Positive; pH 7.47 (7.35-7.45)
[2017-10-07] MEDS ORDERED: Lactulose 10 Gm/15 mL 30mL UDC PO ONE (12:00)
[2017-10-07] MEDS: Meropenem 500 MG in Sodium Chloride 0.9% 100 ML IV SCH (12:38)
--- NOTE | 2017-10-07 13:04 | Infectious Disease Prog Note ---
Infectious Disease Subjective - Review of Systems Service Date: 10/07/17 Subjective: there is no new change, there is no fever. Infectious Disease Objective - Results Result Diagrams: 10/07/17 04:25 10/07/17 04:25 Recent Labs: Laboratory Last Values WBC 13.1 Th/cmm (4.8-10.8) H 10/07/17 04:25 RBC 3.03 Mil/cmm (3.80-5.20) L 10/07/17 04:25 Hgb 9.4 gm/dL (12-16) L 10/07/17 04:25 Hct 28.1 % (41.0-60) L D 10/07/17 04:25 MCV 92.5 fl (81-100) 10/07/17 04:25 MCH 30.9 pg (27.0-31.0) 10/07/17 04:25 MCHC Differential 33.5 pg (28.0-36.0) 10/07/17 04:25 RDW 17.8 % (11.5-20.0) 10/07/17 04:25 Plt Count 191 Th/cmm (150-400) D 10/07/17 04:25 MPV 7.0 fl 10/07/17 04:25 Neutrophils % 77.8 % (40.0-80.0) 10/05/17 04:09 Band Neutrophils % 5 % (0-10) 10/07/17 04:25 Lymphocytes % 10.2 % (20.0-50.0) L 10/05/17 04:09 Monocytes % 9.4 % (2.0-10.0) 10/05/17 04:09 Eosinophils % 2.3 % (0.0-5.0) 10/05/17 04:09 Basophils % 0.3 % (0.0-2.0) 10/05/17 04:09 Neutrophils (Manual) 89 % (40-80) H 10/07/17 04:25 Lymphocytes 4 % (20-50) L 10/07/17 04:25 Monocytes 2 % (2-10) 10/07/17 04:25 Eosinophils 1 % (0-5) 10/04/17 12:52 PT 11.0 SECONDS (9.5-11.5) 10/04/17 12:52 INR 1.06 (0.5-1.4) 10/04/17 12:52 PTT (Actin FS) 21.9 SECONDS (26.0-38.0) L 10/04/17 12:52 Specimen Source Arterial 10/07/17 09:20 Sample Site Right Radial 10/07/17 09:20 pH 7.47 (7.35-7.45) H 10/07/17 09:20 pCO2 42.0 mmHg (35.0-45.0) 10/07/17 09:20 pO2 67.0 mmHg (80.0-100.0) L 10/07/17 09:20 HCO3 29.8 mEq/L (20.0-26.0) H 10/07/17 09:20 Base Excess 6.3 mEq/L (-3.0-3.0) H 10/07/17 09:20 O2 Saturation 94.0 % (92.0-100.0) 10/07/17 09:20 Rai Test Positive 10/07/17 09:20 Vent Rate NA 10/07/17 09:20 Inspired O2 28 10/07/17 09:20 Tidal Volume NA 10/07/17 09:20 PEEP NA 10/07/17 09:20 Pressure (ins/psv/peep) NA 10/07/17 09:20 Critical Value LZHANG 10/07/17 09:20 Sodium 131 mEq/L (136-145) L 10/07/17 04:25 Potassium 4.2 mEq/L (3.5-5.1) 10/07/17 04:25 Chloride 91 mEq/L (98-107) L 10/07/17 04:25 Carbon Dioxide 27.6 mEq/L (21.0-31.0) 10/07/17 04:25 Anion Gap 16.6 (7.0-16.0) H 10/07/17 04:25 BUN 129 mg/dL (7-25) H* 10/07/17 04:25 Creatinine 3.9 mg/dL (0.6-1.2) H 10/07/17 04:25 Est GFR ( Amer) TNP 10/07/17 04:25 Est GFR (Non-Af Amer) TNP 10/07/17 04:25 BUN/Creatinine Ratio 33.1 10/07/17 04:25 Glucose 349 mg/dL (70-105) H 10/07/17 04:25 POC Glucose 431 MG/DL (70 - 105) H 10/07/17 12:24 Hemoglobin A1c % 7.5 % (4.0-6.0) H 10/04/17 12:52 Whole Bld Lactic Acid 1.50 mmol/L (0.60-1.99) 10/04/17 12:52 Calcium 8.5 mg/dL (8.6-10.3) L 10/07/17 04:25 Phosphorus 4.1 mg/dL (2.5-5.0) 10/07/17 04:25 Magnesium 4.1 mg/dL (1.9-2.7) H* 10/05/17 04:09 Iron 39 ug/dL (27-139) 10/06/17 04:22 TIBC 182 ug/dL (250-450) L 10/06/17 04:22 Iron Saturation 21 % (15-55) 10/06/17 04:22 Unsaturated IBC 143 ug/dL (118-369) 10/06/17 04:22 Total Bilirubin 0.6 mg/dL (0.3-1.0) 10/07/17 04:25 Direct Bilirubin 0.11 mg/dL (0.0-0.2) 10/06/17 04:22 AST 10 U/L (13-39) L 10/07/17 04:25 ALT 13 U/L (7-52) 10/07/17 04:25 Alkaline Phosphatase 87 U/L (34-104) 10/07/17 04:25 Troponin I 0.03 ng/mL (0.01-0.05) 10/04/17 12:52 B-Natriuretic Peptide 1680.0 pg/mL (5.0-100.0) H 10/06/17 04:22 Total Protein 5.8 gm/dL (6.0-8.3) L 10/07/17 04:25 Albumin 3.0 gm/dL (3.7-5.3) L 10/07/17 04:25 Globulin 2.8 gm/dL 10/07/17 04:25 Albumin/Globulin Ratio 1.1 (1.0-1.8) 10/07/17 04:25 Triglycerides 73 mg/dL (<150) 10/05/17 04:09 Cholesterol 83 mg/dL (<200) 10/05/17 04:09 LDL Cholesterol Direct 32 mg/dL (75-193) L 10/05/17 04:09 HDL Cholesterol 51 mg/dL (23-92) 10/05/17 04:09 Vitamin B12 1138 pg/mL (232-1245) 10/05/17 04:09 Folic Acid 13.4 ng/mL (>3.0) 10/05/17 04:09 TSH 1.42 uIU/ml (0.34-5.60) 10/07/17 04:25 Urine Source RANDOM 10/04/17 15:00 Urine Color YELLOW 10/04/17 15:00 Urine Clarity CLOUDY (CLEAR) H 10/04/17 15:00 Urine pH 7.5 (4.6 - 8.0) 10/04/17 15:00 Ur Specific [place] 1.015 (1.005-1.030) 10/04/17 15:00 Urine Protein 30 mg/dL (NEGATIVE) H 10/04/17 15:00 Urine Glucose (UA) NEGATIVE mg/dL (NEGATIVE) 10/04/17 15:00 Urine Ketones NEGATIVE mg/dL (NEGATIVE) 10/04/17 15:00 Urine Blood SMALL (NEGATIVE) H 10/04/17 15:00 Urine Nitrate NEGATIVE (NEGATIVE) 10/04/17 15:00 Urine Bilirubin NEGATIVE (NEGATIVE) 10/04/17 15:00 Urine Urobilinogen 0.2 E.U./dL (0.2 - 1.0) 10/04/17 15:00 Ur Leukocyte Esterase LARGE (NEGATIVE) H 10/04/17 15:00 Urine RBC 5-10 /hpf (0-5) H 10/04/17 15:00 Urine WBC >100 /hpf (0-5) H 10/04/17 15:00 Ur Epithelial Cells NONE SEEN /lpf (FEW) 10/04/17 15:00 Urine Bacteria FEW /hpf (NONE SEEN) 10/04/17 15:00 Stool Occult Blood NEGATIVE (NEGATIVE) 10/05/17 17:45 - Physical Exam Vitals and I&O: Vital Signs Temp 98.6 F 10/07/17 07:00 Pulse 105 10/07/17 12:40 Resp 15 10/07/17 10:00 BP 133/49 10/07/17 10:00 Pulse Ox 98 10/07/17 10:00 Intake & Output 10/06/17 10/07/17 10/07/17 18:59 06:59 18:59 Intake Total 100 520 200 Output Total 500 500 Balance 100 20 -300 Weight (lbs) 87.679 kg 87.543 kg Intake: Intake, IV Amount 100 100 Meropenem 500 mg In 100 100 Sodium Chloride 0.9% 100 ml @ 100 mls/hr IV Q12H [facility] Rx#:[id number] Oral 420 200 Output: Urine 500 500 Other: # Bowel Movements 0 Active Medications: Current Medications Acetaminophen/Hydrocodone Bitart ([place] 5mg/325mg) 1 tab PO Q6H PRN PRN Reason: Pain (Severe) Stop: 12/03/17 23:31 Albuterol Sulfate (Albuterol 2.5mg/3ml Neb Ud) 2.5 mg HHN Q2H PRN PRN Reason: Shortness of Breath or Wheeze Stop: 12/03/17 23:31 Albuterol/Ipratropium (Duoneb Neb) 3 ml HHN Q4HRT [facility] Stop: 12/04/17 14:59 Last Admin: 10/07/17 12:00 Dose: 3 ml Atorvastatin Calcium (Lipitor) 40 mg PO DAILY [facility] Stop: 12/05/17 08:59 Last Admin: 10/07/17 08:34 Dose: 40 mg Budesonide (Pulmicort) 0.5 mg HHN BIDRT [facility] Stop: 12/04/17 18:59 Last Admin: 10/07/17 07:51 Dose: 0.5 mg Diltiazem HCl (Cardizem) 60 mg PO Q6HR [facility] Stop: 12/05/17 11:59 Last Admin: 10/07/17 12:40 Dose: 60 mg Diphenhydramine HCl (Benadryl) 25 mg PO QID PRN PRN Reason: Itching Stop: 12/04/17 13:19 Docusate Sodium (Colace) 250 mg PO BID [facility] Stop: 12/06/17 16:59 Fluticasone Propionate (Flonase) 1 spr NS DAILY [facility] Stop: 12/06/17 08:59 Last Admin: 10/07/17 08:35 Dose: 1 spr Guaifenesin (Mucinex) 600 mg PO Q12HR PRN PRN Reason: Cough or Congestion Stop: 12/05/17 17:19 Last Admin: 10/07/17 08:35 Dose: 600 mg Meropenem 500 mg/ Sodium (Chloride) 100 mls @ 100 mls/hr IV Q12H [facility] Stop: 12/04/17 11:59 Last Admin: 10/07/17 12:38 Dose: 100 mls/hr Insulin Aspart (Novolog Insulin Sliding Scale) 0 units SUBQ Q6HR [facility] PRN Reason: Protocol Stop: 12/04/17 00:00 Last Admin: 10/07/17 12:34 Dose: 12 units Lactulose (Cephulac) 30 gm PO QAM PRN PRN Reason: CONSTIPATION Stop: 12/07/17 08:59 Levothyroxine Sodium 0.1 mg/ (Levothyroxine Sodium 0.025 mg) 0.125 mg PO QDAC [facility] Stop: 12/04/17 08:59 Last Admin: 10/07/17 07:58 Dose: 0.125 mg Loratadine (Claritin) 10 mg PO DAILY PRN PRN Reason: Allergy Symptoms Stop: 12/05/17 17:16 Methylprednisolone Sodium Succinate (Solu-Medrol) 40 mg IV Q8HR [facility] Stop: 10/10/17 13:01 Last Admin: 10/07/17 12:40 Dose: 40 mg Metoprolol Tartrate (Lopressor) 25 mg PO BID [facility] Stop: 12/04/17 08:59 Last Admin: 10/07/17 08:34 Dose: 25 mg Miscellaneous (Clinical Monitoring) 1 ea MC PRN PRN PRN Reason: RENAL Stop: 12/04/17 09:55 Ondansetron HCl (Zofran) 4 mg IV Q6H PRN PRN Reason: Nausea / Vomiting Stop: 12/03/17 23:31 Tetrahydrozoline HCl/Zinc Sulfate (Visine Ophth Soln) 0 drop EACH EYE BID PRN PRN Reason: Itchy Dry Eyes Stop: 12/05/17 17:17 Last Admin: 10/07/17 08:35 Dose: 1 drop General: no acute distress, well developed, well nourished HEENT: atraumatic, normocephalic, PERRLA Neck: supple, no thyromegaly, no lymphadenopathy Cardiovascular: S1S2, regular Lungs: clear to auscultation bilaterally, clear to percussion Abdomen: soft, no tender, no distended, no mass, no rebound Extremities: no cyanosis, no clubbing, no edema Infectious Disease Assmt/Plan - Problem List Patient Problems: All Active Problems GENERALIZED WEAKNESS (Acute) - Assessment Assessment: 1. Leukocytosis. 2. UTI. 3. Resolving pneumonia. 4. DM2. 5. HTN. 6. JIMENEZ. 7. CAD. 8. Obesity. 9. RA. 10. Rash ? allergic versus autoimmine. - Plan Plan: CPM. Nutritional Asmnt/Malnutr-PDOC - Dietary Evaluation Malnutrition Findings (Please click <Entered> for more info): Nutritional Asmnt/Malnutrition Start: 10/06/17 15: 15 Text: Status: Complete Freq: Document 10/06/17 15:16 LCHEN (Rec: 10/06/17 15:50 [id number] Nutritional Asmnt/Malnutrition Patient General Information Nutritional Screening High Risk Diagnosis sepsis Pertinent Medical Hx/Surgical Hx HTN, DM, CAD, CHF, anemia, sleep apnea, obesity, coronary bypass graft surgery, hysterectomy Subjective Information Consult received for coccygeal pressure ulcer. Per record, pt consumed 75% of breakfast this morning. Per nurse notes 10/06, pt refused dialysis order. Current Diet Order/ Nutrition Support renal, CCHO Pertinent Medications novolog, levothyroxine Pertinent Labs 10/06 Na 129, K 3.2, Cl 91, BUN 132, Cr 3.9, Glucose 164, POC 158-264 10/04 A1c 7.5 Nutritional Hx/Data Height 1.52 m Height (Calculated Centimeters) 152.4 Current Weight (lbs) 87.543 kg Weight (Calculated Kilograms) 87.5 Weight (Calculated Grams) 83729.3 [place] Body Weight 100 % [place] Body Weight 193 Body Mass Index (BMI) 37.7 Weight Status Obese GI Symptoms GI Symptoms None Last BM 10/05 Difficult in: None Skin Integrity/Comment: bruise to buttocks, right thigh and left leg Pressure ulcer to coccygeal area Current %PO Good (75-100%) Estimated Nutritional Goals BEE in Kcals: Adj wt of IBW Calories/Kcals/Kg 30-35 adj wt 56kg Kcals Calculated 7165-0170 Protein: Adj wt of IBW Protein g/k-1.2 Protein Calculated 56-67 monitor renal labs Fluid: ml 1512-1792ml (1ml/kcal) or per MD Nutritional Problem 2. Problem Problem increased nutrition needs ( calorie and protein) Etiology increased metabolic demand Signs/Symptoms: dx of sepsis and pressure ulcer 1. Problem Problem altered nutrition related lab values Etiology hx of DM, renal dysfunction Signs/Symptoms: Glucose 164, POC 158-264, A1c 7.5, BUN 132, Cr 3.9 Intervention/Recommendation Comments 1. Continue with current diet as ordered. MD to adjust insulin for optimal glycemic control 2. Recommend vit C and zinc for wound healing 3. Monitor PO intake, wt, labs and skin integrity 4. F/U as high risk in 2-3 days, 10/08-3 Expected Outcomes/Goals Expected Outcomes/Goals 1. PO intake to meet at least 75% of nutritional needs. 2. Wt stability, wound to heal , labs to approach WNL.
--- NOTE | 2017-10-07 17:02 | Progress Notes ---
DATE: 10/07/2017 LOCATION: [facility], ICU bed #8. SUBJECTIVE: The patient is conscious and alert. The patient's is at bedside. The patient states that she had a good breakfast. She denies any vomiting, diarrhea, or shortness of breath. The patient is making good urine. No complaint of fever. The patient states that she is waiting to be transferred to [place] in order to start dialysis. OBJECTIVE: VITAL SIGNS: Blood pressure 130/45, heart rate 116, and temperature 98. Yesterday's intake 2450, urine output through [place] 1450. HEART: Regular. LUNGS: Good air entry. ABDOMEN: Soft. EXTREMITIES: 1+ edema. LABORATORY DATA: WBC 13.1, hemoglobin 9.4, and platelet count 191,000. Sodium 131, potassium 4.2, chloride 91, CO2 of 27, BUN 129, improving, creatinine 3.9, calcium 8.5. TSH 1.4. ASSESSMENT: 1. Chronic kidney disease 5. 2. Anemia secondary to chronic kidney disease. 3. Hypertension. 4. Hyponatremia, improving. 5. Atrial fibrillation. 6. History of coronary artery disease. PLAN: We will get Urology consult for hydronephrosis. The patient again advised to start dialysis. She has a good AV fistula on the left upper extremity. The patient is refusing at this time. Consequences are discussed with the patient. Check the lab in the morning. JOB# [id number]
--- NOTE | 2017-10-07 20:35 | General Progress Note ---
Subjective - Review of Systems Service Date: 10/07/17 Subjective: Patient seen and examined doing better afebrile denied chest pain or shortness of breath or any other complaints Objective - Results Result Diagrams: 10/07/17 04:25 10/07/17 04:25 Recent Labs: Laboratory Last Values WBC 13.1 Th/cmm (4.8-10.8) H 10/07/17 04:25 RBC 3.03 Mil/cmm (3.80-5.20) L 10/07/17 04:25 Hgb 9.4 gm/dL (12-16) L 10/07/17 04:25 Hct 28.1 % (41.0-60) L D 10/07/17 04:25 MCV 92.5 fl (81-100) 10/07/17 04:25 MCH 30.9 pg (27.0-31.0) 10/07/17 04:25 MCHC Differential 33.5 pg (28.0-36.0) 10/07/17 04:25 RDW 17.8 % (11.5-20.0) 10/07/17 04:25 Plt Count 191 Th/cmm (150-400) D 10/07/17 04:25 MPV 7.0 fl 10/07/17 04:25 Neutrophils % 77.8 % (40.0-80.0) 10/05/17 04:09 Band Neutrophils % 5 % (0-10) 10/07/17 04:25 Lymphocytes % 10.2 % (20.0-50.0) L 10/05/17 04:09 Monocytes % 9.4 % (2.0-10.0) 10/05/17 04:09 Eosinophils % 2.3 % (0.0-5.0) 10/05/17 04:09 Basophils % 0.3 % (0.0-2.0) 10/05/17 04:09 Neutrophils (Manual) 89 % (40-80) H 10/07/17 04:25 Lymphocytes 4 % (20-50) L 10/07/17 04:25 Monocytes 2 % (2-10) 10/07/17 04:25 Eosinophils 1 % (0-5) 10/04/17 12:52 PT 11.0 SECONDS (9.5-11.5) 10/04/17 12:52 INR 1.06 (0.5-1.4) 10/04/17 12:52 PTT (Actin FS) 21.9 SECONDS (26.0-38.0) L 10/04/17 12:52 Specimen Source Arterial 10/07/17 09:20 Sample Site Right Radial 10/07/17 09:20 pH 7.47 (7.35-7.45) H 10/07/17 09:20 pCO2 42.0 mmHg (35.0-45.0) 10/07/17 09:20 pO2 67.0 mmHg (80.0-100.0) L 10/07/17 09:20 HCO3 29.8 mEq/L (20.0-26.0) H 10/07/17 09:20 Base Excess 6.3 mEq/L (-3.0-3.0) H 10/07/17 09:20 O2 Saturation 94.0 % (92.0-100.0) 10/07/17 09:20 Rai Test Positive 10/07/17 09:20 Vent Rate NA 10/07/17 09:20 Inspired O2 28 10/07/17 09:20 Tidal Volume NA 10/07/17 09:20 PEEP NA 10/07/17 09:20 Pressure (ins/psv/peep) NA 10/07/17 09:20 Critical Value LZHANG 10/07/17 09:20 Sodium 131 mEq/L (136-145) L 10/07/17 04:25 Potassium 4.2 mEq/L (3.5-5.1) 10/07/17 04:25 Chloride 91 mEq/L (98-107) L 10/07/17 04:25 Carbon Dioxide 27.6 mEq/L (21.0-31.0) 10/07/17 04:25 Anion Gap 16.6 (7.0-16.0) H 10/07/17 04:25 BUN 129 mg/dL (7-25) H* 10/07/17 04:25 Creatinine 3.9 mg/dL (0.6-1.2) H 10/07/17 04:25 Est GFR ( Amer) TNP 10/07/17 04:25 Est GFR (Non-Af Amer) TNP 10/07/17 04:25 BUN/Creatinine Ratio 33.1 10/07/17 04:25 Glucose 529 mg/dL (70-105) H* 10/07/17 18:05 POC Glucose 497 MG/DL (70 - 105) H* 10/07/17 20:20 Hemoglobin A1c % 7.5 % (4.0-6.0) H 10/04/17 12:52 Whole Bld Lactic Acid 1.50 mmol/L (0.60-1.99) 10/04/17 12:52 Calcium 8.5 mg/dL (8.6-10.3) L 10/07/17 04:25 Phosphorus 4.1 mg/dL (2.5-5.0) 10/07/17 04:25 Magnesium 4.1 mg/dL (1.9-2.7) H* 10/05/17 04:09 Iron 39 ug/dL (27-139) 10/06/17 04:22 TIBC 182 ug/dL (250-450) L 10/06/17 04:22 Iron Saturation 21 % (15-55) 10/06/17 04:22 Unsaturated IBC 143 ug/dL (118-369) 10/06/17 04:22 Total Bilirubin 0.6 mg/dL (0.3-1.0) 10/07/17 04:25 Direct Bilirubin 0.11 mg/dL (0.0-0.2) 10/06/17 04:22 AST 10 U/L (13-39) L 10/07/17 04:25 ALT 13 U/L (7-52) 10/07/17 04:25 Alkaline Phosphatase 87 U/L (34-104) 10/07/17 04:25 Troponin I 0.03 ng/mL (0.01-0.05) 10/04/17 12:52 B-Natriuretic Peptide 1680.0 pg/mL (5.0-100.0) H 10/06/17 04:22 Total Protein 5.8 gm/dL (6.0-8.3) L 10/07/17 04:25 Albumin 3.0 gm/dL (3.7-5.3) L 10/07/17 04:25 Globulin 2.8 gm/dL 10/07/17 04:25 Albumin/Globulin Ratio 1.1 (1.0-1.8) 10/07/17 04:25 Triglycerides 73 mg/dL (<150) 10/05/17 04:09 Cholesterol 83 mg/dL (<200) 10/05/17 04:09 LDL Cholesterol Direct 32 mg/dL (75-193) L 10/05/17 04:09 HDL Cholesterol 51 mg/dL (23-92) 10/05/17 04:09 Vitamin B12 1138 pg/mL (232-1245) 10/05/17 04:09 Folic Acid 13.4 ng/mL (>3.0) 10/05/17 04:09 TSH 1.42 uIU/ml (0.34-5.60) 10/07/17 04:25 Urine Source RANDOM 10/04/17 15:00 Urine Color YELLOW 10/04/17 15:00 Urine Clarity CLOUDY (CLEAR) H 10/04/17 15:00 Urine pH 7.5 (4.6 - 8.0) 10/04/17 15:00 Ur Specific [place] 1.015 (1.005-1.030) 10/04/17 15:00 Urine Protein 30 mg/dL (NEGATIVE) H 10/04/17 15:00 Urine Glucose (UA) NEGATIVE mg/dL (NEGATIVE) 10/04/17 15:00 Urine Ketones NEGATIVE mg/dL (NEGATIVE) 10/04/17 15:00 Urine Blood SMALL (NEGATIVE) H 10/04/17 15:00 Urine Nitrate NEGATIVE (NEGATIVE) 10/04/17 15:00 Urine Bilirubin NEGATIVE (NEGATIVE) 10/04/17 15:00 Urine Urobilinogen 0.2 E.U./dL (0.2 - 1.0) 10/04/17 15:00 Ur Leukocyte Esterase LARGE (NEGATIVE) H 10/04/17 15:00 Urine RBC 5-10 /hpf (0-5) H 10/04/17 15:00 Urine WBC >100 /hpf (0-5) H 10/04/17 15:00 Ur Epithelial Cells NONE SEEN /lpf (FEW) 10/04/17 15:00 Urine Bacteria FEW /hpf (NONE SEEN) 10/04/17 15:00 Stool Occult Blood NEGATIVE (NEGATIVE) 10/07/17 11:15 - Physical Exam Vitals and I&O: Vital Signs Temp 98.6 F 10/07/17 18:00 Pulse 115 10/07/17 18:00 Resp 18 10/07/17 18:00 BP 132/61 10/07/17 18:00 Pulse Ox 100 10/07/17 18:00 Intake & Output 10/07/17 10/07/17 10/08/17 06:59 18:59 06:59 Intake Total 520 1110 Output Total 500 950 Balance 20 160 Weight (lbs) 87.679 kg 87.725 kg Intake: Intake, IV Amount 100 100 Meropenem 500 mg In 100 100 Sodium Chloride 0.9% 100 ml @ 100 mls/hr IV Q12H [facility] Rx#:[id number] Oral 420 1010 Output: Urine 500 950 Other: # Bowel Movements 0 Active Medications: Current Medications Acetaminophen/Hydrocodone Bitart ([place] 5mg/325mg) 1 tab PO Q6H PRN PRN Reason: Pain (Severe) Stop: 12/03/17 23:31 Albuterol Sulfate (Albuterol 2.5mg/3ml Neb Ud) 2.5 mg HHN Q2H PRN PRN Reason: Shortness of Breath or Wheeze Stop: 12/03/17 23:31 Albuterol/Ipratropium (Duoneb Neb) 3 ml HHN Q4HRT [facility] Stop: 12/04/17 14:59 Last Admin: 10/07/17 19:23 Dose: 3 ml Atorvastatin Calcium (Lipitor) 40 mg PO DAILY [facility] Stop: 12/05/17 08:59 Last Admin: 10/07/17 08:34 Dose: 40 mg Budesonide (Pulmicort) 0.5 mg HHN BIDRT [facility] Stop: 12/04/17 18:59 Last Admin: 10/07/17 19:23 Dose: 0.5 mg Diltiazem HCl (Cardizem) 60 mg PO Q6HR [facility] Stop: 12/05/17 11:59 Last Admin: 10/07/17 17:50 Dose: 60 mg Diphenhydramine HCl (Benadryl) 25 mg PO QID PRN PRN Reason: Itching Stop: 12/04/17 13:19 Docusate Sodium (Colace) 250 mg PO BID [facility] Stop: 12/06/17 16:59 Last Admin: 10/07/17 17:50 Dose: 250 mg Fluticasone Propionate (Flonase) 1 spr NS DAILY [facility] Stop: 12/06/17 08:59 Last Admin: 10/07/17 08:35 Dose: 1 spr Guaifenesin (Mucinex) 600 mg PO Q12HR PRN PRN Reason: Cough or Congestion Stop: 12/05/17 17:19 Last Admin: 10/07/17 08:35 Dose: 600 mg Meropenem 500 mg/ Sodium (Chloride) 100 mls @ 100 mls/hr IV Q12H [facility] Stop: 12/04/17 11:59 Last Infusion: 10/07/17 17:24 Dose: Infused Insulin Aspart (Novolog Insulin Sliding Scale) 0 units SUBQ Q6HR [facility] PRN Reason: Protocol Stop: 12/04/17 00:00 Last Admin: 10/07/17 18:22 Dose: 12 units Insulin Detemir (Levemir Insulin) 15 units SUBQ HS [facility] PRN Reason: Protocol Stop: 12/06/17 20:59 Lactulose (Cephulac) 30 gm PO QAM PRN PRN Reason: CONSTIPATION Stop: 12/07/17 08:59 Levothyroxine Sodium 0.1 mg/ (Levothyroxine Sodium 0.025 mg) 0.125 mg PO QDAC [facility] Stop: 12/04/17 08:59 Last Admin: 10/07/17 07:58 Dose: 0.125 mg Loratadine (Claritin) 10 mg PO DAILY PRN PRN Reason: Allergy Symptoms Stop: 12/05/17 17:16 Methylprednisolone Sodium Succinate (Solu-Medrol) 40 mg IV Q8HR [facility] Stop: 10/10/17 13:01 Last Admin: 10/07/17 12:40 Dose: 40 mg Metoprolol Tartrate (Lopressor) 25 mg PO BID [facility] Stop: 12/04/17 08:59 Last Admin: 10/07/17 17:49 Dose: 25 mg Miscellaneous (Clinical Monitoring) 1 ea MC PRN PRN PRN Reason: RENAL Stop: 12/04/17 09:55 Ondansetron HCl (Zofran) 4 mg IV Q6H PRN PRN Reason: Nausea / Vomiting Stop: 12/03/17 23:31 Tetrahydrozoline HCl/Zinc Sulfate (Visine Ophth Soln) 0 drop EACH EYE BID PRN PRN Reason: Itchy Dry Eyes Stop: 12/05/17 17:17 Last Admin: 10/07/17 08:35 Dose: 1 drop General: Alert Cardiovascular: Other (tachycardia) Lungs: Other (scattered rales) Abdomen: Soft Extremities: Edema Assessment/Plan - Problem List Patient Problems: All Active Problems GENERALIZED WEAKNESS (Acute) - Assessment Assessment: SEPSIS UTI ACUTE ON CKD HYPONATREMIA CHRONIC HEART FAILURE CAD HTN ALLERGIES - Plan Plan: Nephrology recomended to start HD but patient wants it to be started at MAY Transfer plan discussed with case management. Awaiting transfer. Patient aware about DC plan Continue current treatment. MAR reviewed Follow up labs in am Monitor vitals PT OT Plan of care discussed with patient and nursing staff Nutritional Asmnt/Malnutr-PDOC - Dietary Evaluation Malnutrition Findings (Please click <Entered> for more info): Nutritional Asmnt/Malnutrition Start: 10/06/17 15: 15 Text: Status: Complete Freq: Document 10/06/17 15:16 LCHENG (Rec: 10/06/17 15:50 LCHENG [email or web address]) Nutritional Asmnt/Malnutrition Patient General Information Nutritional Screening High Risk Diagnosis sepsis Pertinent Medical Hx/Surgical Hx HTN, DM, CAD, CHF, anemia, sleep apnea, obesity, coronary bypass graft surgery, hysterectomy Subjective Information Consult received for coccygeal pressure ulcer. Per record, pt consumed 75% of breakfast this morning. Per nurse notes 10/06, pt refused dialysis order. Current Diet Order/ Nutrition Support renal, CCHO Pertinent Medications novolog, levothyroxine Pertinent Labs 10/06 Na 129, K 3.2, Cl 91, BUN 132, Cr 3.9, Glucose 164, POC 158-264 10/04 A1c 7.5 Nutritional Hx/Data Height 1.52 m Height (Calculated Centimeters) 152.4 Current Weight (lbs) 87.543 kg Weight (Calculated Kilograms) 87.5 Weight (Calculated Grams) 22575.3 [place] Body Weight 100 % [place] Body Weight 193 Body Mass Index (BMI) 37.7 Weight Status Obese GI Symptoms GI Symptoms None Last BM 10/05 Difficult in: None Skin Integrity/Comment: bruise to buttocks, right thigh and left leg Pressure ulcer to coccygeal area Current %PO Good (75-100%) Estimated Nutritional Goals BEE in Kcals: Adj wt of IBW Calories/Kcals/Kg 30-35 adj wt 56kg Kcals Calculated 0103-5919 Protein: Adj wt of IBW Protein g/k-1.2 Protein Calculated 56-67 monitor renal labs Fluid: ml 1512-1792ml (1ml/kcal) or per MD Nutritional Problem 2. Problem Problem increased nutrition needs ( calorie and protein) Etiology increased metabolic demand Signs/Symptoms: dx of sepsis and pressure ulcer 1. Problem Problem altered nutrition related lab values Etiology hx of DM, renal dysfunction Signs/Symptoms: Glucose 164, POC 158-264, A1c 7.5, BUN 132, Cr 3.9 Intervention/Recommendation Comments 1. Continue with current diet as ordered. MD to adjust insulin for optimal glycemic control 2. Recommend vit C and zinc for wound healing 3. Monitor PO intake, wt, labs and skin integrity 4. F/U as high risk in 2-3 days, 10/08-3 Expected Outcomes/Goals Expected Outcomes/Goals 1. PO intake to meet at least 75% of nutritional needs. 2. Wt stability, wound to heal , labs to approach WNL.
[2017-10-07] MEDS ORDERED: Insulin Detemir 100 units/mL 10mL Vial SUBQ SCH (21:00)
[2017-10-08] MEDS ORDERED: Lactulose 10 Gm/15 mL 30mL UDC PO PRN (09:00)
--- NOTE | 2017-10-08 11:19 | Progress Notes ---
DATE: 10/07/2017 PULMONARY PROGRESS NOTE PROBLEM LIST: 1. Mild degree of tracheobronchitis. 2. Pulmonary hypertension. 3. Cardiac arrhythmia. 4. Suspect obstructive sleep apnea syndrome with sepsis. SYMPTOMS: Nil. [place] No specific symptomatology. Still complains of coughing "allergy." PHYSICAL EXAMINATION: VITAL SIGNS: T-max 98.5, heart rate is 110-115, blood pressure 138/60, saturation is 98 on 3 liters of oxygen. NECK: Veins not visualized. CHEST: Shows diminished air entry with occasional rhonchi. HEART: Irregular. ABDOMEN: Soft, nontender. LABORATORY DATA: White count is 13,000. ABG: PO2 is 67 this morning. Electrolytes are okay with BUN 129, creatinine 3.9. ASSESSMENT: The patient is clinically stable, unchanged, slightly better after steroid. PLANS AND SUGGESTIONS: We will go ahead and continue current treatment, hopefully can be tapered off of steroids in few days. Continue rest of the treatment. Strongly urge to consider getting BiPAP for a total facemask and see how she does and go from there. JOB# [id number]
== END 2017-10-07 21:40 | disposition short-term general hospital (02) | DRG 871 ==
LOC: ER 12:17 → ICU 22:31
PROVIDERS: ADMIT Family Medicine; ATTEND Family Medicine
DX: A41.9 Sepsis, unspecified organism (principal); J18.9 Pneumonia, unspecified organism; I13.2 Hypertensive heart and chronic kidney disease with heart failure and with stage 5 chronic kidney disease, or end stage renal disease; N17.9 Acute kidney failure, unspecified; E11.22 Type 2 diabetes mellitus with diabetic chronic kidney disease; E11.65 Type 2 diabetes mellitus with hyperglycemia; E66.01 Morbid (severe) obesity due to excess calories; I27.20 Pulmonary hypertension, unspecified; I50.22 Chronic systolic (congestive) heart failure; N18.5 Chronic kidney disease, stage 5; N39.0 Urinary tract infection, site not specified; E87.1 Hypo-osmolality and hyponatremia; N13.30 Unspecified hydronephrosis; E87.5 Hyperkalemia; E03.9 Hypothyroidism, unspecified; I25.10 Atherosclerotic heart disease of native coronary artery without angina pectoris; E78.5 Hyperlipidemia, unspecified; D63.1 Anemia in chronic kidney disease; I48.2 Chronic atrial fibrillation; G47.33 Obstructive sleep apnea (adult) (pediatric); E86.0 Dehydration; R21 Rash and other nonspecific skin eruption; Z68.37 Body mass index [BMI] 37.0-37.9, adult; Z90.710 Acquired absence of both cervix and uterus; Z88.8 Allergy status to other drugs, medicaments and biological substances; Z91.041 Radiographic dye allergy status; Z95.1 Presence of aortocoronary bypass graft
CPT/HCPCS: 36415-UA; 36600-90; 70450-TC; 71045-TC; 71250-TC; 76770-TC; 80048-TC; 80053-TC; 80061-TC; 81001-TC; 82248-TC; 82270-TC; 82607-90; 82746-90; 82803-TC; 82947-TC; 82948-90; 83036-90; 83540-90; 83550-90; 83605; 83735-TC; 83880-TC; 84100-TC; 84443-TC; 84484-TC; 85007-TC; 85025-TC; 85027-TC; 85610-TC; 87086-90; 93005; 94640; 96379; 97530; J1815; J1940; J1956; J2185; J2920; J7030; J7040; J7613; Z7610